=== PATIENT | male | born 1965 | race Caucasian/White ===

== ENCOUNTER → 2021-05-05 | Outpatient (REF) ==
--- NOTE | 2021-05-05 13:45 | REP ---
INDICATION: BACK INJURY. COMPARISON: None TECHNIQUE: Multiple views of the cervical spine. FINDINGS: Vertebral body height and alignment is within normal limits. The disc spaces are symmetric and relatively well maintained. The facet joints appear well aligned bilaterally. IMPRESSION: Unremarkable cervical spine series. Although this plain radiographic evaluation of the cervical spine shows no evidence of a fracture, it should be remembered that CT is much more sensitive than plain radiography of the C-spine in detecting fractures. If this examination was ordered to rule out a fracture then CT of the cervical spine is recommended. <Electronically signed by Drew Barrios > 05/05/21 [id number]
== END ==
LOC: M PLAIMG 12:36
PROVIDERS: ATTEND Internal Medicine
DX: S39.92XA Unspecified injury of lower back, initial encounter (principal); X58.XXXA Exposure to other specified factors, initial encounter; Y92.9 Unspecified place or not applicable; Y99.9 Unspecified external cause status